=== PATIENT | female | born 1950 | race Two or more races ===

== ENCOUNTER 2024-09-11 22:33 | Emergency (ER) | payer OTHER ==
[~2024-09-11] VITALS: Ht 165.1 cm; Wt 93.0 kg
[2024-09-12] MEDS ORDERED: KETOROLAC TROMETHAMINE 60 MG VIAL IM STA (05:21)
[2024-09-12] MEDS ORDERED: ORPHENADRINE CITRATE 30 MG/ML AMPUL IM STA (05:21)
[2024-09-12] MEDS ORDERED: KETOROLAC TROMETHAMINE 60 MG VIAL IM ONE (05:24)
[2024-09-12] MEDS ORDERED: ORPHENADRINE CITRATE 30 MG/ML AMPUL ONE (05:24)
[2024-09-12 05:45] LABS: HEMATOCRIT 41.5 % (36.0-45.00); HEMOGLOBIN 13.8 g/dL (12.0-15.00); MEAN CORPUSCULAR HEMOGLOBIN 30.5 pg (27.00-32.0); MEAN CORPUSCULAR HGB CONC 33.2 g/dl (32.0-36.0); PLATELET COUNT 264 K/uL (150-450); RED BLOOD COUNT 4.51 M/uL (4.00-6.00); RED CELL DISTRIBUTION WIDTH 15.9 % (11.5-14.5)
[2024-09-12 05:45] LABS: PH,URINE 5.5 (5.0-8.0); URINE APPEARANCE Cloudy; URINE BILIRRUBIN Negative (NEGATIVE); URINE BLOOD Moderate; URINE COLOR Yellow; URINE KETONE Negative (NEGATIVE); URINE LEUKOCYTE Trace; URINE NITRATE Negative; URINE PROTEIN >=1000 (NEGATIVE); URINE UROBILINOGEN 0.2 E.U./dl
[2024-09-12 05:49] LABS: URINE CAST 8.83 uL (0.0-1.40); URINE EPITHELIAL CELLS 74.2 uL (0.0-38.8); URINE RBC 96.1 uL (0.0-20.8); URINE WBC 115.7 uL (0.0-23.2)
[2024-09-12 05:59] LABS: CALCIUM 8.5 mg/dL (8.5-10.1); CREATININE SERUM 2.52 mg/dL (0.55-1.02); GFR 18.7; POTASSIUM 3.98 mEq/L (3.5-5.1)
[2024-09-12 06:19] LABS: URINE GLUCOSE 100 MG/DL (NEGATIVE)
== END 2024-09-12 08:45 | disposition home or self-care (01) ==
LOC: ER 22:34
DX: M62.830 Muscle spasm of back (principal); R53.81 Other malaise